=== PATIENT | female | born 1940 | race Caucasian/White ===

== ENCOUNTER → 2018-10-16 | Outpatient (CLI) | payer OTHER ==
[~2018-10-16] VITALS: Ht 162.6 cm; Wt 59.0 kg
[~2018-10-16] MED LIST: ALPHA LIPOIC AC50 M1 PO; AMANTADINE100 M1 PO; B COMPLEX1 EACH PO; CALCIUM 500 +1 EAC5 PO; CARBIDOPA-LEVO1 EAC7 PO; CARBIDOPA-LEVO1 EAC9 PO; CENTRUM SILVER1 EAC4 PO; ELDEPRYL5 MG PO; FOLBEE TABLET1 EACH PO; MIRAPEX0.5 MG PO; OMEGA-31000 M1 PO; PRED FORTE 1% EY5 M1 OPHTHALMIC; PRED-FORTE OPHTH1 M1 OP; SELEGILINE HCL5 M1 PO; SINEMET 25-1001 EAC1 PO; TURMERIC500 M2 PO; TURMERIC500 MG PO
--- NOTE | ~2018-10-16 | P ---
[facility] [address] PROCEDURE REPORT Name: DIVYA LOPEZ Priyanka [id number] Admission: 10/16/18 ������������������ Attend Phys: Mekhi Heck MD Discharge: ������������������ Date of : 44 Report #: [id number] THIS REPORT FOR: //name// CC: ROB Heck PREOPERATIVE DIAGNOSIS: Dysphagia. POSTOPERATIVE DIAGNOSES: 1. Diffuse gastritis with small amount of retained bile in the stomach. 2. Recurrent dysphagia with food bolus obstruction. MEDICATIONS: Deep sedation with propofol per Anesthesia. SPECIMENS: 1. Biopsy of gastritis. 2. Random biopsies of the esophagus, rule out eosinophilic esophagitis. ESTIMATED BLOOD LOSS: 3 mL. PROCEDURE: EGD with biopsy. FINDINGS: Prior to propofol sedation, procedure of upper endoscopy was discussed with the patient as well as potential risks, benefits and complications. She indicates she understands and desires to proceed. DESCRIPTION OF PROCEDURE: With the patient in left lateral decubitus position, the Olympus video endoscope was inserted in the cervical esophagus under direct vision without difficulty. Examination of this organ through its entire length revealed normal esophageal mucosa down the squamocolumnar junction. The squamocolumnar junction was inspected and noted to be unremarkable. There is no evidence of ulcers, erosions, strictures or rings anywhere in the esophagus. A hiatus hernia was not seen. No mass lesions were seen. In addition, typical features of eosinophilic esophagitis were not seen, but in view of her symptoms, multiple random biopsies were obtained of the esophagus. The scope was advanced into the stomach, which was examined on end view as well as retroflexed views. There was diffuse erythema throughout the stomach. There were some erythematous striations in the antrum. However, the mucosa was intact and no ulcers or erosions were seen. In addition, there was a small amount of bile in the stomach, which was aspirated away. It was probably no more than 10 mm. The gastric mucosa was coated with bilious material. Upon retroflexion, no mass lesions were seen. The pylorus, duodenal bulb and postbulbar sweep were all inspected and noted to be unremarkable. At that point, the scope was slowly withdrawn and careful circumferential views confirmed the above finding and the patient tolerated the procedure well. [address] [address] PROCEDURE REPORT Name: DIVYA LOPEZ Room #: REG [facility]#: [id number] Admission: 10/16/18 ������������������ Attend Phys: Mekhi Heck MD Discharge: ������������������ Date of : 44 Report #: [id number] Subsequently, the patient was dilated with passage of a 52-Greek Molina dilator. There was no resistance. CONDITION OF THE PATIENT UPON DISCHARGE: Following procedure, the patient drowsy, aroused, conversant and will be discharged home when fully ambulatory. INSTRUCTIONS TO THE PATIENT AND FAMILY AT THE TIME OF DISCHARGE: A clear-cut indication for dysphagia was not identified. We will follow up on biopsies obtained today. We will follow up on pathology. If she does not have eosinophilic esophagitis and continues to have difficulty with dysphagia, I will suggest an esophageal manometry as the next test. Although she reports she is doing very well and has minimal symptoms with Parkinson disease, her dysphagia could be related to Parkinson disease. If she has benefit from dilation and does well with recurrent symptoms down the road, repeat dilation may be reasonable. She will return to the care of Dr. Rob Rangel and return to see me as needed. ��������������������������������������������� ���������������������������������������� By: ��������������������������������������������� [id number] Mekhi Heck MD /nt
--- NOTE | 2018-10-18 17:06 | PATH ---
[facility] [place] [address] PATHOLOGY RPT PROCEDURE Name: FRANKCARMELA Room #: REG [facility] Gavin.#: [id number] ������������������ Admission: 10/16/18 ������������������ Date of : 44 Discharge: Report #: [id number] Path Case #: [id number] [facility] Accession Number: [id number] . 01 Material submitted: . PART A: stomach - BX GASTRITIS R/O H PYLORI PART B: esophagus - RANDOM BX ESOPHAGUS R/O EOE . 01 Clinical history: . Preop DX: Dysphagia Postop DX: Gastritis, dysphagia A. R/O H. pylori B. R/O EOE . 02 Diagnosis: A. Gastric mucosa, gastritis rule out H. pylori, endoscopic biopsy: - Mild reactive gastropathy. - Negative for intestinal metaplasia or atrophy. - Negative for Helicobacter pylori (properly-controlled immunohistochemical stain performed). . B. Squamous mucosa, random esophagus, rule out EOE, endoscopic biopsy: - Mild esophagitis with features of reflux esophagitis. - No increase in intraepithelial eosinophils. - Negative for dysplasia. . (IUV:mml; 10/18/2018) QLM/10/18/2018 . 02 Electronically signed: . Lisseth Melo MD, Pathologist NPI- [id number] . 01 Gross description: . A. Received in formalin labeled "Carmela Frank, BX gastritis R/O H. pylori," are five segments of alberto-brown soft tissue measuring 0.8 x 0.6 x 0.2 cm in aggregate dimensions and ranging from 0.2 to 0.5 cm in maximum dimension. The specimen is submitted entirely in cassette A1. . B. Received in formalin labeled "Carmela Frank, random BX esophagus R/O EOE," are multiple fragments of alberto-brown soft tissue measuring 0.8 x 0.7 x 0.2 cm in aggregate dimensions and ranging from 0.1 to 0.5 cm in maximum dimension. The specimen is submitted entirely in cassette B1. The smallest fragments may not survive processing. (DAC; 10/17/2018) XDC/XDC . [address] [address] PATHOLOGY RPT PROCEDURE Name: CARMELA FRANK Room #: REG [facility] Ng#: [id number] ������������������ Admission: 10/16/18 ������������������ Date of : 44 Discharge: Report #: [id number] Path Case #: [id number] Pathologist provided ICD-10: K31.9, K21.0 . 02 CPT . 575034, 230617, L64188 Specimen Comment: A courtesy copy of this report has been sent to Specimen Comment: [phone], . Specimen Comment: Report sent to Performed at: [address], [place] [id number] MD Derek Fuller MD Phone: [phone] Performed at: [address] [id number] MD Lisseth Melo MD Phone: [phone]
== END | disposition home or self-care (01) ==
LOC: GI 07:47
DX: K31.9 Disease of stomach and duodenum, unspecified (principal); K21.0 Gastro-esophageal reflux disease with esophagitis; G20 Parkinson's disease; Z90.710 Acquired absence of both cervix and uterus; Z90.49 Acquired absence of other specified parts of digestive tract; Z98.41 Cataract extraction status, right eye; Z98.42 Cataract extraction status, left eye; Z96.653 Presence of artificial knee joint, bilateral; Z98.890 Other specified postprocedural states; Z79.899 Other long term (current) drug therapy
CPT/HCPCS: 62110; 62900